=== PATIENT | female | born 1945 | race Caucasian/White ===

== ENCOUNTER 2018-06-25 12:09 | Inpatient (IN) | payer BC ==
[~2018-06-25] VITALS: Ht 165.1 cm; Wt 72.6 kg
[2018-06-25 15:38] LABS: BASOPHILS # (AUTO) 0.1 K/uL (0.0-0.2); BASOPHILS % (AUTO) 0.7 % (0.0-2.0); EOSINOPHILS # (AUTO) 0.2 K/uL (0.0-0.4); EOSINOPHILS % (AUTO) 2.8 % (0.0-4.0); HEMATOCRIT 42.1 % (36-48); LYMPHOCYTES # (AUTO) 1.9 K/uL (1.0-5.5); LYMPHOCYTES % (AUTO) 21.6 % (20.5-51.5); MEAN CORPUSCULAR HEMOGLOBIN 30 pg (27-31); MEAN CORPUSCULAR HGB CONC 33 % (32-36); MEAN CORPUSCULAR VOLUME 90 fL (79.0-98.0); MONOCYTES # (AUTO) 0.8 K/uL (0.0-1.0); MONOCYTES % (AUTO) 9.6 % (1.7-9.3); NEUTROPHILS # (AUTO) 5.7 K/uL (1.8-7.7); NEUTROPHILS % (AUTO) 65.3 % (40.0-70.0); PLATELET COUNT (AUTO) 310 K/uL (130-430); RED BLOOD CELL COUNT(AUTO) 4.66 MIL/uL (4.2-6.2); RED CELL DISTRIBUTION WIDTH 13.5 % (9.0-15.0); WHITE BLOOD COUNT (AUTO) 8.7 K/uL (4.8-10.8)
[2018-06-25 15:49] VITALS: BP_SYST 141
[2018-06-25 15:49] LABS: ANION GAP 5 (5-15); CALCIUM 8.8 mg/dL (8.4-11.0); CHLORIDE 106 mmol/L (98-107); CREATININE 0.52 mg/dL (0.55-1.30); GLUCOSE 121 mg/dL (70-99); POTASSIUM 3.9 mmol/L (3.5-5.1); SODIUM SERUM 141 mmol/L (136-145); UREA NITROGEN, BLOOD 11 mg/dL (8-21)
[2018-06-25] MEDS ORDERED: TRAZ-218 PO (15:54)
[2018-06-25] MEDS ORDERED: LIP20 PO (15:54)
[2018-06-25] MEDS ORDERED: CELE100C PO (15:54)
[2018-06-25] MEDS ORDERED: LORA10TA7 PO (15:54)
[2018-06-25] MEDS ORDERED: CALC-939 PO (15:54)
[2018-06-25] MEDS ORDERED: DILT120C89 PO (15:54)
[2018-06-25] MEDS ORDERED: FAMO20TA8 PO (15:54)
[2018-06-25 15:55] LABS: ALANINE AMINOTRANSFERASE 20 U/L (12-78); ALBUMIN 2.8 g/dL (3.4-4.8); ASPARTATE AMINOTRANSFERASE 21 U/L (10-37); TOTAL BILIRUBIN 0.3 mg/dL (0.0-1.0)
[2018-06-25] MEDS ORDERED: ALEN10TA6 PO (16:02)
[2018-06-25] MEDS ORDERED: HYDR12.55 PO (16:02)
[2018-06-25] MEDS ORDERED: traZODone HCL 50 MG TABLET (DESYREL) PO PRN (18:30)
[2018-06-25] MEDS ORDERED: ASPIRIN 325 MG TABLET (ECOTRIN) PO ONE (19:00)
[2018-06-25 19:55] VITALS: BP_SYST 131
[2018-06-25] MEDS: FAMOTIDINE 20 MG TABLET PO SCH (21:00)
[2018-06-25] MEDS: MECLIZINE HCL 25 MG TABLET (ANITVERT) PO SCH (21:00)
[2018-06-25 23:45] VITALS: BP_SYST 113
[2018-06-26] VITALS (7 sets, daily range): BP systolic 122–134
[2018-06-26 07:14] LABS: BASOPHILS % (AUTO) 0.5 % (0.0-2.0); EOSINOPHILS # (AUTO) 0.4 K/uL (0.0-0.4); EOSINOPHILS % (AUTO) 5.5 % (0.0-4.0); HEMOGLOBIN 13.4 g/dL (12.0-16.0); LYMPHOCYTES # (AUTO) 2.2 K/uL (1.0-5.5); LYMPHOCYTES % (AUTO) 28.5 % (20.5-51.5); MEAN CORPUSCULAR HEMOGLOBIN 30 pg (27-31); MEAN CORPUSCULAR HGB CONC 33 % (32-36); MEAN CORPUSCULAR VOLUME 92 fL (79.0-98.0); MONOCYTES # (AUTO) 0.7 K/uL (0.0-1.0); MONOCYTES % (AUTO) 9.6 % (1.7-9.3); NEUTROPHILS # (AUTO) 4.2 K/uL (1.8-7.7); NEUTROPHILS % (AUTO) 55.9 % (40.0-70.0); PLATELET COUNT (AUTO) 301 K/uL (130-430); RED BLOOD CELL COUNT(AUTO) 4.48 MIL/uL (4.2-6.2); RED CELL DISTRIBUTION WIDTH 13.8 % (9.0-15.0); WHITE BLOOD COUNT (AUTO) 7.6 K/uL (4.8-10.8)
[2018-06-26 07:38] LABS: ALANINE AMINOTRANSFERASE 19 U/L (12-78); ALBUMIN 2.7 g/dL (3.4-4.8); ANION GAP 5 (5-15); ASPARTATE AMINOTRANSFERASE 17 U/L (10-37); CALCIUM 8.6 mg/dL (8.4-11.0); CHLORIDE 106 mmol/L (98-107); CHOLESTEROL 181 mg/dL (<200); CREATININE 0.51 mg/dL (0.55-1.30); GLUCOSE 104 mg/dL (70-99); HDL CHOLESTEROL 35 mg/dL (>55); LDL CHOLESTEROL 136 mg/dL (<100); POTASSIUM 4.3 mmol/L (3.5-5.1); SODIUM SERUM 138 mmol/L (136-145); THYROID STIMULATING HORMONE 0.48 uIu/mL (0.34-4.82); TOTAL BILIRUBIN 0.5 mg/dL (0.0-1.0); TRIGLYCERIDES 89 mg/dL (30-150); UREA NITROGEN, BLOOD 20 mg/dL (8-21)
[2018-06-26] MEDS: ASPIRIN 325 MG TABLET (ECOTRIN) PO SCH (08:31)
[2018-06-26] MEDS: MECLIZINE HCL 25 MG TABLET (ANITVERT) PO SCH ×3 (08:31→20:24)
[2018-06-26] MEDS: FAMOTIDINE 20 MG TABLET PO SCH ×2 (08:31→20:24)
[2018-06-26] MEDS: ATORVASTATIN 20 MG TABLET PO SCH (08:31)
[2018-06-26] MEDS: DILTIAZEM HCL 120 MG CAP.SR.24H PO SCH (08:32)
[2018-06-27 00:40] VITALS: BP_SYST 110
[2018-06-27 08:00] VITALS: BP_SYST 137
[2018-06-27] MEDS: DILTIAZEM HCL 120 MG CAP.SR.24H PO SCH (08:31)
[2018-06-27] MEDS: ATORVASTATIN 20 MG TABLET PO SCH (08:31)
[2018-06-27] MEDS: ASPIRIN 325 MG TABLET (ECOTRIN) PO SCH (08:32)
[2018-06-27] MEDS: MECLIZINE HCL 25 MG TABLET (ANITVERT) PO SCH (08:32)
[2018-06-27] MEDS: FAMOTIDINE 20 MG TABLET PO SCH (08:32)
[2018-06-27 11:25] VITALS: BP_SYST 138
[2018-06-27 11:26] VITALS: BP_SYST 138
[2018-06-27] MEDS ORDERED: MECL12.584 PO (11:28)
== END 2018-06-27 11:45 | disposition home health service (06) | DRG 149 ==
LOC: SMU 15:05 → STU 15:46 → SMU 06-26 16:32
PROVIDERS: ADMIT Internal Medicine Hospice and Palliative Medicine; ATTEND Internal Medicine Hospice and Palliative Medicine
DX: H83.09 Labyrinthitis, unspecified ear (principal); I10 Essential (primary) hypertension; F32.9 Major depressive disorder, single episode, unspecified; F41.9 Anxiety disorder, unspecified; M81.0 Age-related osteoporosis without current pathological fracture
CPT/HCPCS: 36415; 70551; 80053; 80061; 84443-TC; 85025; 93005; 93306; 93880; G0378; J8597